=== PATIENT | male | born 1995 | race Caucasian/White ===

== ENCOUNTER 2017-11-05 02:30 | Emergency (ER) | payer OTHER ==
[~2017-11-05] VITALS: Ht 165.1 cm; Wt 68.0 kg
[~2017-11-05 02:30] MED LIST: AMOX875 PO; HYDR1TAB94 PO
[2017-11-05] MEDS ORDERED: Augmentin 875-1 EACH PO (02:38)
== END 2017-11-05 02:50 ==
LOC: ER 02:30
DX: S51.852A Open bite of left forearm, initial encounter (principal); S00.81XA Abrasion of other part of head, initial encounter; Z90.49 Acquired absence of other specified parts of digestive tract; F17.210 Nicotine dependence, cigarettes, uncomplicated; W54.0XXA Bitten by dog, initial encounter
CPT/HCPCS: 90471; 90714; 99283

== ENCOUNTER 2020-06-11 00:50 | Inpatient (IN) | payer SELFPAY ==
[~2020-06-11] VITALS: Ht 165.1 cm; Wt 64.3 kg
[~2020-06-11 00:50] MED LIST changes: +Augmentin 875-1 EACH PO
[2020-06-11 01:24] LABS: Source, Urine Catheter
[2020-06-11 01:28] LABS: BASOPHILS ABSOLUTE AUTO 0.09 K/mm3 (0.00-0.23); BASOPHILS PERCENT AUTO 1 % (0-2); EOSINOPHILS ABSOLUTE AUTO 0.19 K/mm3 (0.00-0.68); EOSINOPHILS PERCENT AUTO 1 % (0-6); Hematocrit 38.7 % (37.0-53.0); Hemoglobin 12.9 g/dL (13.5-17.5); IMMATURE GRAN ABSOLUTE AUTO 0.04 K/mm3 (0.00-0.10); IMMATURE GRAN PERCENT AUTO 0 % (0-1); LYMPHOCYTES ABSOLUTE AUTO 5.71 K/mm3 (0.84-5.20); LYMPHOCYTES PERCENT AUTO 37 % (21-46); MONOCYTES ABSOLUTE AUTO 1.53 K/mm3 (0.16-1.47); MONOCYTES PERCENT AUTO 10 % (4-13); Mean Corpuscular HGB 32.3 pg (26.0-34.0); Mean Corpuscular HGB Conc 33.3 g/dL (31.5-36.5); Mean Corpuscular Volume 97 fL (80-100); Mean Platelet Volume 8.9 fL (9.1-12.4); NEUTROPHILS ABSOLUTE AUTO 8.05 K/mm3 (1.96-9.15); NEUTROPHILS PERCENT AUTO 52 % (41-73); Platelet Count 368 K/mm3 (150-400); RDW Coefficient Variation 12.3 % (11.7-14.2); RDW Standard Deviation 44.1 fL (35.1-46.3); Red Blood Cell Count 3.99 M/mm3 (4.30-5.90); White Blood Cell Count 15.61 K/mm3 (4.00-11.30)
[2020-06-11 01:49] LABS: U Amphetamine Screen DETECTED; U Barbituate Screen Not Detected; U Benzodiazapine Screen Not Detected; U Buprenorphine Screen Not Detected; U Cannabinoids Screen Not Detected; U Cocaine Screen Not Detected; U Methadone Screen Not Detected; U Methamphetamine Screen DETECTED; U Opiates Screen Not Detected; U Oxycodone Screen Not Detected; U Phencyclidine Screen Not Detected; U Propoxyphene Screen Not Detected
[2020-06-11 01:50] LABS: Acetaminophen, Random <2.0 ug/mL (10.0-30.0); Alanine Aminotransfer (ALT/SGP 79 U/L (12-78); Albumin, Blood 4.5 g/dL (3.4-5.0); Albumin/Globulin Ratio 1.2 (0.8-1.8); Alk Phos 102 U/L (50-136); Anion Gap 19 mmol/L (6-16); Aspartate Aminotrans (AST/SGOT 42 U/L (12-37); Bilirubin, Total 0.4 mg/dL (0.1-1.0); Blood Urea Nitrogen 26 mg/dL (8-24); CO2, Blood 17 mmol/L (21-32); Calcium, Blood 9.1 mg/dL (8.5-10.1); Chloride, Blood 107 mmol/L (98-108); Creatinine, Blood 1.24 mg/dL (0.60-1.20); Ethanol (Alcohol), Blood, Med <3 mg/dL; Globulin, Blood 3.8 g/dL (2.2-4.0); Glomerular Filtration Rate >60 (60-); Glucose, Blood 160 mg/dL (70-99); Potassium, Blood 3.9 mmol/L (3.5-5.5); Salicylate <1.7 mg/dL (2.8-20.0); Sodium, Blood 143 mmol/L (136-145); Total Protein, Blood 8.3 g/dL (6.4-8.2)
[2020-06-11 01:54] LABS: Appearance, Urine Clear (Clear); Bilirubin, Urine Neg (Neg); Blood, Urine 1+ (Neg); Color, Urine Yellow (P-Yellow); Glucose Qualitative, Urine Neg (Neg); Ketones, Urine Neg (Neg); Leukocyte Esterase, Urine Neg (Neg); Nitrite, Urine Neg (Neg); Protein, Urine 2+ (Neg); Urobilinogen, Urine NORM (Normal)
[2020-06-11 01:56] LABS: Amorphous Mod (0-Heavy); Bacteria Rare /hpf; Red Blood Cells, Urine Rare /hpf (0-2); Squamous Epithelial Cells Not Seen /hpf (Few); White Blood Cells, Urine Rare /hpf (0-5)
[2020-06-11 04:17] LABS: Hematocrit 36.8 % (37.0-53.0); Hemoglobin 12.9 g/dL (13.5-17.5); Mean Corpuscular HGB 31.9 pg (26.0-34.0); Mean Corpuscular HGB Conc 35.1 g/dL (31.5-36.5); Mean Platelet Volume 8.9 fL (9.1-12.4); Platelet Count 306 K/mm3 (150-400); RDW Coefficient Variation 12.2 % (11.7-14.2); RDW Standard Deviation 40.9 fL (35.1-46.3); Red Blood Cell Count 4.04 M/mm3 (4.30-5.90)
[2020-06-11 04:20] LABS: Mean Corpuscular Volume 91 fL (80-100)
[2020-06-11 04:31] LABS: Anion Gap 8 mmol/L (6-16); Blood Urea Nitrogen 26 mg/dL (8-24); Bun/Creatinine Ratio 22.4 (12.0-20.0); CO2, Blood 25 mmol/L (21-32); Calcium, Blood 9.4 mg/dL (8.5-10.1); Chloride, Blood 108 mmol/L (98-108); Creatinine, Blood 1.16 mg/dL (0.60-1.20); Glomerular Filtration Rate >60 (60-); Glucose, Blood 106 mg/dL (70-99); Potassium, Blood 3.4 mmol/L (3.5-5.5); Sodium, Blood 141 mmol/L (136-145)
--- NOTE | 2020-06-11 07:27 | NUR ---
SHIFT SUMMARY PATIENT ARRIVED TO ICU RM. 5 FROM ED. PT. WAS VERY AGITATED, INCREASED PROPOFOL DRIP TO EVENTUALY 80 MCG/KG/MIN, RECEIVED ORDER FROM DR. SINGH FOR PRECEDEX DRIP, NOW ABLE TO PERFORM MOST ROUTINE CARE WITHOUT STARTING TO THRASH HEAD OR PULL AT ETT. NO COOPERATIVE/PUROSEFUL MOVEMENT NOTED, PT. WOULD JUST THRASH ABOUT AND TRY TO REACH AND PULL AT ETT. DID NOT RECEIVE WORD OR ATTEMPT TO CONTACT FAMILY. TOOK PICTURES OF WOUNDS TO LEFT LEG; THERE IS ONE LARGE LACERATION IN THE INNER LEFT THIGH THAT IS SUTURED, ONE SMALLER PUNCTURE-WOUND, A SMALLER LACERATION THAT IS STARTING TO SCAB OVER, AND THREE MODERATE SIZE PUNCTURE-WOUNDS ON THE POSTERIOR LEFT CALF. ASSESSMENT IS CHARTED. VSS. IT HAS BEEN A PLEASURE TAKING CARE OF THE PATIENT.
--- NOTE | 2020-06-11 07:29 | NUR ---
ASSUMED CARE RECIEVED REPORT FROM RASHAD GA. PT INTUBATED WITH 8.0 ETT, 26 AT THE TIP OF THE LIP. VENT SETTINGS ARE AC 14/430/5/21%; PT CURRENTLY BREATHING AT A RATE OF 20. CURRENT GTTPs ARE PROPOFOL AT 80 MCG/KG/MIN, PRECEDEX AT 0.2 MCG/KG/HR, AND LR AT 125 ML/HR. PT IS IN SINUS RHYTHM TO SINUS TACH, 98-105; BP IS ADEQUATE. PT HAS PATENT BOWSER, DRAINING CLEAR, YELLOW URINE. PT HAS SOFT RESTRAINTS X 4 EXTREMETIES. BED LOW AND LOCKED.
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
--- NOTE | 2020-06-11 18:45 | NUR ---
UPDATE PT WOKE UP WITH VERBAL STIMULATION AND WAS ABLE TO SQUEEZE MY FINGERS AND THEN LET GO. HE BARLEY WIGGLED HIS TOES (BUT MOVEMENT DETECTED). AND HE APPEARED TO NOD TO ME WHEN I ASKED IF HE COULD UNDERSTAND ME. HIS EYES REMAINED CLOSED. AFTER A MOMENT OF NO STIMULATION PT IS NOW BACK TO RESTING/CALM/CPOT OF 0. PT DENIED PAIN.
--- NOTE | 2020-06-11 19:00 | NUR ---
ASSUMED CARE ASSUMED CARE OF PATIENT. REMAINS INTUBATED- AC 14, TV 430, PEEP 5, FIO2 21%. RR 20s. SEDATED WITH PROPOFOL AT 45MCG/KG/MIN AND PRECEDEX AT 0.7MCG/KG/HR. PT IS ATTEMPTING TO SIT UP IN BED AND IS THRASHING- PROPOFOL INCREASED TO 55MCG/KG/MIN BY DAY SHIFT RN. MONITOR SHOWS NSR, RATE 80s. BP STABLE. TEMP 99.3F VIA BOWSER TEMP PROBE. OG TO LIS WITH SCANT DRAINAGE. BOWSER PATENT AND DRAINING TO GRAVITY. LR INFUSING @ 125CC/HR PER ORDER. BILATERAL UPPER AND LOWER EXTREMITY RESTRAINTS IN PLACE. BANDAGES NOTED TO RIGHT UPPER THIGH AND RIGHT CALF- D/D/I. SEE PICTURES IN CHART. SEE SHIFT ASSESSMENT FOR FULL ASSESSMENT.
[2020-06-12 03:37] LABS: BASOPHILS ABSOLUTE AUTO 0.04 K/mm3 (0.00-0.23); BASOPHILS PERCENT AUTO 0 % (0-2); EOSINOPHILS ABSOLUTE AUTO 0.13 K/mm3 (0.00-0.68); EOSINOPHILS PERCENT AUTO 1 % (0-6); Hematocrit 32.5 % (37.0-53.0); IMMATURE GRAN ABSOLUTE AUTO 0.04 K/mm3 (0.00-0.10); IMMATURE GRAN PERCENT AUTO 0 % (0-1); LYMPHOCYTES ABSOLUTE AUTO 1.64 K/mm3 (0.84-5.20); LYMPHOCYTES PERCENT AUTO 16 % (21-46); MONOCYTES ABSOLUTE AUTO 0.98 K/mm3 (0.16-1.47); MONOCYTES PERCENT AUTO 10 % (4-13); Mean Corpuscular HGB 31.8 pg (26.0-34.0); Mean Corpuscular HGB Conc 33.8 g/dL (31.5-36.5); Mean Corpuscular Volume 94 fL (80-100); Mean Platelet Volume 8.5 fL (9.1-12.4); NEUTROPHILS ABSOLUTE AUTO 7.35 K/mm3 (1.96-9.15); NEUTROPHILS PERCENT AUTO 72 % (41-73); Platelet Count 232 K/mm3 (150-400); RDW Coefficient Variation 12.7 % (11.7-14.2); Red Blood Cell Count 3.46 M/mm3 (4.30-5.90); White Blood Cell Count 10.18 K/mm3 (4.00-11.30)
[2020-06-12 04:01] LABS: Alanine Aminotransfer (ALT/SGP 47 U/L (12-78); Albumin, Blood 3.2 g/dL (3.4-5.0); Alk Phos 81 U/L (50-136); Anion Gap 7 mmol/L (6-16); Aspartate Aminotrans (AST/SGOT 34 U/L (12-37); Bilirubin, Total 1.1 mg/dL (0.1-1.0); Blood Urea Nitrogen 17 mg/dL (8-24); Bun/Creatinine Ratio 15.5 (12.0-20.0); CO2, Blood 25 mmol/L (21-32); Calcium, Blood 8.6 mg/dL (8.5-10.1); Chloride, Blood 114 mmol/L (98-108); Glomerular Filtration Rate >60 (60-); Glucose, Blood 101 mg/dL (70-99); Magnesium, Blood 2.5 mg/dL (1.6-2.4); Phosphorus, Blood 4.3 mg/dL (2.5-4.9); Potassium, Blood 3.2 mmol/L (3.5-5.5); Sodium, Blood 146 mmol/L (136-145)
[2020-06-12 04:19] LABS: Albumin/Globulin Ratio 1.1 (0.8-1.8); Total Protein, Blood 6.2 g/dL (6.4-8.2)
[2020-06-12 05:46] LABS: PCO2 Arterial 36.9 mmHg (35-45); PO2 Arterial 91.6 mmHg (80-100); pH Blood Arterial 7.42 (7.35-7.45)
--- NOTE | 2020-06-12 06:04 | NUR ---
SHIFT SUMMARY NO ACUTE CHANGES. REMAINS INTUBATED- AC 14, TV 430, PPEP 5, FIO2 21%. RR 14-20s. SEDATED WITH PROPOFOL BETWEEN 5-55MCG/KG/MIN AND PRECEDEX BETWEEN 0.3-0.7MCG/KG/HR DURING NOC. PROPOFOL NOW AT 25MCG/KG/MIN AND PRECEDEX AT 0.7MCG/KG/HR. SBT DONE THIS AM WITH PROPOFOL OFF AND PRECEDEX AT 0.3MCG/KG/HR. PT COOPERATIVE IN THE BEGINNING OF WEANING TRIAL, BUT BECAME AGITATED AND RESTLESS AT THE END. PROPOFOL AND PRECEDEX RESTARTED AND PT MEDICATED WITH ATIVAN 2MG IV FOLLOWED BY FENTANYL 50MCG IV AN ADJUNCT TO SEDATION. MOVES ALL EXTREMITIES, BUT DOES NOT FOLLOW COMMANDS. ATTEMPTS TO REACH FOR ETT WHEN RESTRAINTS LOOSENED. VSS T/O NOC. OG TO LIS WITH 250CC GREENISH DRAINAGE. BOWSER PATENT AND DRAINING TO GRAVITY. RIGHT THIGH AND CALF DRSGS ARE C/D/I. KCL IV REPLACEMENT STARTED PER ELECTROLYTE PROTOCOL. WILL REPORT TO DAY SHIFT RN WHEN AVAILABLE.
--- NOTE | 2020-06-12 06:10 | NUR ---
SHIFT SUMMARY NO ACUTE CHANGES DURING NOC. PT WAS CALM AND COOPERATIVE. MEDICATED WITH TYLENOL 650MG PO X 2 DOSES AND FENTANYL 25MCG IV X 2 DOSES FOR C/O LEFT ARM PAIN. LEFT ARM IS SWOLLEN AND RED. TMAX 99.7F. VSS. RESPIRATIONS EVEN AND UNLABORED. VOIDING WITHOUT DIFFICULTY. INCONTINENT OF LOOSE BROWN STOOL WHILE IN SHOWER. REMAINS ON A 2MD HOLD. DENIED SUICIDAL/HOMICIDAL IDEATION. WILL REPORT TO ONCOMING RN WHEN AVAILABLE.
--- NOTE | 2020-06-12 08:26 | NUR ---
PT INTUBATED AND SEDATED WITH PROPOFOL AND PRECEDEX (SEE FLOWSHEET). DR. DE LA ROSA IN TO SEE PT AND WANTS HIM WEANED DOWN ON SEDATION TO SEE IF HE FOLLOWS COMMANDS. NO SIGN OF DISTRESS AT THE MOMENT.
--- NOTE | 2020-06-12 09:35 | NUR ---
PT EXTUBATED AT [address] DE LA ROSA. PRECEDEX PUT ON STANDBY. PT ON 4L NC. WAKING UP BUT IS DIFFICULT TO UNDERSTAND. FOLLOWING SIMPLE COMMANDS.
--- NOTE | 2020-06-12 11:53 | NUR ---
AFTER EXTUBATION PT WAS ABLE TO FOLLOW SIMPLE COMMANDS BUT BECOMES AGITATED. WAS NOT ABLE TO REDIRECT. PT'S CONVERSATION WAS NOT MAKING SENSE AND STARTED PULLING IV'S OUT AND LINES OFF. PT PULLED IV OUT AND WOULD NOT ALLOW RN TO COVER. PT STATES "NO JUST LET IT BLEED", BLOOD IS RUNNING DOWN HIS ARM. WOULD NOT KEEP O2 SAT PROBE ON. PT ASKED "WHAT DID THEY DO WITH MY CRYSTALS". WHEN BOWSER WAS REMOVED PT WANTED TO INSPECT URINE FOR "SHADOWS". NOW HAS O2 OFF AND IS 97% ON RA. PUT PT BACK ON PRECEDEX AND GAVE ATIVAN.
--- NOTE | 2020-06-12 17:45 | NUR ---
SUMMARY PT WAS EXTUBATED THIS AM. HAS BEEN ON RA MOST OF THE DAY. PT WAS INITIALLY PULLING LINES AND TUBES AND WAS NOT REDIRECTABLE. HE WOULD HAVE BIZAAR CONVERSATION THAT DID NOT CORRELATE. WAS ON PRECEDEX UNTIL THIS EVENING. PT WOKE THIS EVENING COOPERATIVE AND ABLE TO ANSWER QUESTIONS. PRECEDEX WAS TURNED OFF. PT IS NOW WANTING TO GO HOME. EDUCATED ABOUT NEED FOR ABX AND HE IS STILL UNSTEADY ON FEET. GOT PT TO RECLINER CHAIR AND IS NOW RESTING THERE. ATE 2 JELLO WITHOUT DIFFICULTY AND TOLERATING WATER. DINNER TRAY ON IT'S WAY. WILL CONTINUE TO TRY TO GET PT TO STAY IN THE HOSPITAL. DR. TIRADO CAME IN AND LOOKED AT SUTURES TO R THIGH. NO NEW ORDERS. NO SIGN OF DISTRESS.
--- NOTE | 2020-06-12 18:14 | NUR ---
PT WANTS TO LEAVE AMA. EDUCATED ABOUT RISKS OF LEAVING AND BENEFITS OF STAYING. PT SPOKE WITH FRIEND ON THE PHONE WHO IS HERE TO GET HIM. PT ABLE TO STATE NAME, MONTH, YEAR, PRESIDENT, AND WHY HE WAS BROUGHT IN TO THE HOSPITAL. PT IS STILL UNSTEADY ON FEET. FRIEND SAYS SHE WILL HELP HIM TO THE CAR AND TAKE CARE OF HIM AT HOME. PT IS ADAMANT. IV'S REMOVED, AMA PAPERWORK SIGNED, AND DR. MADDOX NOTIFIED. PT IS BEING WHEELED OUT OF UNIT BY FRIEND WITH ER WHEEL CHAIR.
== END 2020-06-12 18:15 | disposition left against medical advice (07) | DRG 604 ==
LOC: ER 00:50 → ICUE 02:17 → ICUW 02:17 → ICUE 03:30
PROVIDERS: Emergency Medicine; Internal Medicine Critical Care Medicine; ADMIT Internal Medicine
PROC: 0BH17EZ Insertion of Endotracheal Airway into Trachea, Via Natural or Artificial Opening (ICD-10-PCS; principal; 2020-06-11)
PROC: 5A1935Z Respiratory Ventilation, Less than 24 Consecutive Hours (ICD-10-PCS; 2020-06-11)
PROC: 0HQKXZZ Repair Right Lower Leg Skin, External Approach (ICD-10-PCS; 2020-06-11)
DX: S71.151A Open bite, right thigh, initial encounter (principal); G92 Toxic encephalopathy; R65.10 Systemic inflammatory response syndrome (SIRS) of non-infectious origin without acute organ dysfunction; W54.0XXA Bitten by dog, initial encounter; Y92.89 Other specified places as the place of occurrence of the external cause; Y99.9 Unspecified external cause status; F15.10 Other stimulant abuse, uncomplicated; F17.210 Nicotine dependence, cigarettes, uncomplicated; E87.6 Hypokalemia
CPT/HCPCS: 12002; 31500; 31720; 36415; 36600; 36680; 51702; 71045; 80048; 80053; 81001; 82330; 82803; 83605; 83735; 84100; 85025; 85027; 87040; 87070; 87205; 90471; 90714; 94002; 94003; 96365-59; 96366-59; 99291-25; 99292; C1751; C9113; G0480; J0330; J0690; J1650; J2060; J2543; J2704; J3010; J3480; J7120

== ENCOUNTER 2020-12-04 21:49 | Emergency (ER) | payer OTHER ==
[~2020-12-04] VITALS: Ht 172.7 cm; Wt 68.0 kg
[2020-12-04 22:17] LABS: BASOPHILS ABSOLUTE AUTO 0.04 K/mm3 (0.00-0.23); BASOPHILS PERCENT AUTO 0 % (0-2); EOSINOPHILS ABSOLUTE AUTO 0.18 K/mm3 (0.00-0.68); EOSINOPHILS PERCENT AUTO 1 % (0-6); Hematocrit 34.2 % (37.0-53.0); Hemoglobin 11.9 g/dL (13.5-17.5); IMMATURE GRAN ABSOLUTE AUTO 0.15 K/mm3 (0.00-0.10); IMMATURE GRAN PERCENT AUTO 1 % (0-1); LYMPHOCYTES PERCENT AUTO 16 % (21-46); MONOCYTES ABSOLUTE AUTO 0.76 K/mm3 (0.16-1.47); MONOCYTES PERCENT AUTO 6 % (4-13); Mean Corpuscular HGB 31.2 pg (26.0-34.0); Mean Corpuscular HGB Conc 34.8 g/dL (31.5-36.5); Mean Corpuscular Volume 90 fL (80-100); Mean Platelet Volume 9.4 fL (9.1-12.4); NEUTROPHILS ABSOLUTE AUTO 9.32 K/mm3 (1.96-9.15); NEUTROPHILS PERCENT AUTO 75 % (41-73); Platelet Count 353 K/mm3 (150-400); RDW Coefficient Variation 13.2 % (11.7-14.2); RDW Standard Deviation 42.9 fL (35.1-46.3); Red Blood Cell Count 3.82 M/mm3 (4.30-5.90); White Blood Cell Count 12.45 K/mm3 (4.00-11.30)
[2020-12-04 22:30] LABS: International Normalized Ratio 0.98; Prothrombin Time Results 10.5 Sec (9.7-11.5)
[2020-12-04 22:37] LABS: Alanine Aminotransfer (ALT/SGP 49 U/L (12-78); Albumin, Blood 3.9 g/dL (3.4-5.0); Albumin/Globulin Ratio 1.1 (0.8-1.8); Alk Phos 82 U/L (50-136); Anion Gap 9 mmol/L (6-16); Aspartate Aminotrans (AST/SGOT 74 U/L (12-37); Beta HCG, Quantitative, Serum <1 mIU/mL (0-1); Bilirubin, Total 0.4 mg/dL (0.1-1.0); Blood Urea Nitrogen 26 mg/dL (8-24); Bun/Creatinine Ratio 20.8 (12.0-20.0); CO2, Blood 25 mmol/L (21-32); Calcium, Blood 8.7 mg/dL (8.5-10.1); Chloride, Blood 107 mmol/L (98-108); Creatinine, Blood 1.25 mg/dL (0.60-1.20); Ethanol (Alcohol), Blood, Med <3 mg/dL; Globulin, Blood 3.5 g/dL (2.2-4.0); Glomerular Filtration Rate 54 (60-); Glucose, Blood 95 mg/dL (70-99); Potassium, Blood 4.5 mmol/L (3.5-5.5); Sodium, Blood 141 mmol/L (136-145); Total Protein, Blood 7.4 g/dL (6.4-8.2)
== END 2020-12-05 00:26 | disposition short-term general hospital (02) ==
LOC: ER 21:49 → EDBD 21:49 → ER 21:49
PROVIDERS: Emergency Medicine
DX: S22.42XA Multiple fractures of ribs, left side, initial encounter for closed fracture (principal); S27.0XXA Traumatic pneumothorax, initial encounter; S27.321A Contusion of lung, unilateral, initial encounter; S36.039A Unspecified laceration of spleen, initial encounter; W13.2XXA Fall from, out of or through roof, initial encounter
CPT/HCPCS: 70450; 71260; 72125; 74177; 80053; 83690; 84702; 85025; 85610; 96374-59; 99285-25; G0480; J3010; L0160; Q9967

== ENCOUNTER 2020-12-22 16:13 | Emergency (ER) | payer OTHER ==
[~2020-12-22] VITALS: Ht 162.6 cm; Wt 68.0 kg
== END 2020-12-22 16:42 | disposition left against medical advice (07) ==
LOC: ER 16:13
DX: R07.81 Pleurodynia (principal); Z53.21 Procedure and treatment not carried out due to patient leaving prior to being seen by health care provider
CPT/HCPCS: 99283

== ENCOUNTER 2021-04-29 12:00 | Emergency (ER) | payer OTHER ==
[~2021-04-29] VITALS: Ht 162.6 cm; Wt 72.6 kg
== END 2021-04-29 12:15 | disposition left against medical advice (07) ==
LOC: ER 12:00
DX: Z53.21 Procedure and treatment not carried out due to patient leaving prior to being seen by health care provider (principal)

== ENCOUNTER 2021-09-12 06:41 | Emergency (ER) | payer OTHER ==
[~2021-09-12] VITALS: Ht 162.6 cm; Wt 65.8 kg
[2021-09-12] MEDS ORDERED: Bactrim Ds Tab1 EACH PO (09:04)
[2021-09-12] MEDS ORDERED: CEPH500 PO (09:04)
== END 2021-09-12 09:43 | disposition home or self-care (01) ==
LOC: ER 06:41
DX: L02.511 Cutaneous abscess of right hand (principal); L03.113 Cellulitis of right upper limb; F17.210 Nicotine dependence, cigarettes, uncomplicated
CPT/HCPCS: 10060; 36415; 73120; 90471; 90714; 96365; 96375; 99283-25; A9270; J0690; J1885

== ENCOUNTER 2022-01-29 18:41 | Emergency (ER) | payer OTHER ==
[~2022-01-29] VITALS: Ht 157.5 cm; Wt 45.4 kg
[~2022-01-29 18:41] MED LIST changes: +Bactrim Ds Tab1 EACH PO; +CEPH500 PO
== END 2022-01-29 19:30 ==
LOC: ER 18:41
DX: F29 Unspecified psychosis not due to a substance or known physiological condition (principal); F17.210 Nicotine dependence, cigarettes, uncomplicated
CPT/HCPCS: 96372; 99282-25; J2060

== ENCOUNTER 2022-02-27 20:33 | Emergency (ER) | payer OTHER ==
[~2022-02-27] VITALS: Ht 162.6 cm; Wt 63.5 kg
[2022-02-27 21:32] LABS: BASOPHILS ABSOLUTE AUTO 0.05 K/mm3 (0.00-0.23); BASOPHILS PERCENT AUTO 1 % (0-2); EOSINOPHILS ABSOLUTE AUTO 0.15 K/mm3 (0.00-0.68); EOSINOPHILS PERCENT AUTO 2 % (0-6); Hematocrit 32.3 % (37.0-53.0); Hemoglobin 10.9 g/dL (13.5-17.5); Mean Corpuscular HGB 29.6 pg (26.0-34.0); Mean Corpuscular HGB Conc 33.7 g/dL (31.5-36.5); Mean Corpuscular Volume 88 fL (80-100); Mean Platelet Volume 10.1 fL (9.1-12.4); Platelet Count 234 K/mm3 (150-400); RDW Coefficient Variation 17.3 % (11.7-14.2); RDW Standard Deviation 54.8 fL (35.1-46.3); Red Blood Cell Count 3.68 M/mm3 (4.30-5.90); White Blood Cell Count 7.81 K/mm3 (4.00-11.30)
[2022-02-27 21:33] LABS: IMMATURE GRAN ABSOLUTE AUTO 0.02 K/mm3 (0.00-0.10); IMMATURE GRAN PERCENT AUTO 0 % (0-1); LYMPHOCYTES ABSOLUTE AUTO 3.27 K/mm3 (0.84-5.20); LYMPHOCYTES PERCENT AUTO 42 % (21-46); MONOCYTES ABSOLUTE AUTO 0.85 K/mm3 (0.16-1.47); MONOCYTES PERCENT AUTO 11 % (4-13); NEUTROPHILS ABSOLUTE AUTO 3.47 K/mm3 (1.96-9.15); NEUTROPHILS PERCENT AUTO 44 % (41-73)
[2022-02-27 22:12] LABS: Albumin/Globulin Ratio 0.9 (0.8-1.8); Bilirubin, Direct 6.8 mg/dL (0.0-0.3); Bilirubin, Total 9.1 mg/dL (0.1-1.0); Bun/Creatinine Ratio 13.4 (12.0-20.0); Calcium, Blood 8.4 mg/dL (8.5-10.1); Creatinine, Blood 0.74 mg/dL (0.60-1.20); Globulin, Blood 3.5 g/dL (2.2-4.0); Potassium, Blood 3.9 mmol/L (3.5-5.5); Total Protein, Blood 6.5 g/dL (6.4-8.2)
[2022-02-27 22:40] LABS: Source, Urine Clean Catch
[2022-02-27 22:44] LABS: Blood, Urine Neg (Neg); Glucose Qualitative, Urine Neg (Neg); Ketones, Urine Neg (Neg); Leukocyte Esterase, Urine Neg (Neg); Nitrite, Urine Neg (Neg); Protein, Urine Neg (Neg); Specific Gravity, Urine 1.015 (1.003-1.022); Urobilinogen, Urine 1+ (Normal)
[2022-02-27 22:48] LABS: Appearance, Urine Clear (Clear); Bilirubin, Urine 2+ (Neg); Color, Urine Yellow (P-Yellow)
== END 2022-02-27 23:50 | disposition left against medical advice (07) ==
LOC: ER 20:33
PROVIDERS: Emergency Medicine; Physician Assistant
DX: L98.9 Disorder of the skin and subcutaneous tissue, unspecified (principal); Z53.21 Procedure and treatment not carried out due to patient leaving prior to being seen by health care provider
CPT/HCPCS: 36415; 80053; 81003; 82248; 83690; 85025

== ENCOUNTER 2022-03-06 18:11 | Inpatient (IN) | payer OTHER ==
[~2022-03-06] VITALS: Ht 162.6 cm; Wt 61.4 kg
[2022-03-06 19:27] LABS: BASOPHILS ABSOLUTE AUTO 0.07 K/mm3 (0.00-0.23); BASOPHILS PERCENT AUTO 0 % (0-2); EOSINOPHILS ABSOLUTE AUTO 0.17 K/mm3 (0.00-0.68); EOSINOPHILS PERCENT AUTO 1 % (0-6); Hematocrit 29.6 % (37.0-53.0); Hemoglobin 9.9 g/dL (13.5-17.5); IMMATURE GRAN ABSOLUTE AUTO 0.09 K/mm3 (0.00-0.10); IMMATURE GRAN PERCENT AUTO 1 % (0-1); LYMPHOCYTES ABSOLUTE AUTO 3.66 K/mm3 (0.84-5.20); LYMPHOCYTES PERCENT AUTO 20 % (21-46); MONOCYTES ABSOLUTE AUTO 1.94 K/mm3 (0.16-1.47); MONOCYTES PERCENT AUTO 10 % (4-13); Mean Corpuscular HGB 30.8 pg (26.0-34.0); Mean Corpuscular HGB Conc 33.4 g/dL (31.5-36.5); Mean Corpuscular Volume 92 fL (80-100); Mean Platelet Volume 8.7 fL (9.1-12.4); NEUTROPHILS ABSOLUTE AUTO 12.67 K/mm3 (1.96-9.15); NEUTROPHILS PERCENT AUTO 68 % (41-73); Platelet Count 486 K/mm3 (150-400); RDW Coefficient Variation 17.2 % (11.7-14.2); RDW Standard Deviation 57.7 fL (35.1-46.3); Red Blood Cell Count 3.21 M/mm3 (4.30-5.90)
[2022-03-06 19:45] LABS: Albumin/Globulin Ratio 0.7 (0.8-1.8); Bilirubin, Total 2.1 mg/dL (0.1-1.0); Bun/Creatinine Ratio 22.5 (12.0-20.0); Calcium, Blood 8.4 mg/dL (8.5-10.1); Creatinine, Blood 0.71 mg/dL (0.60-1.20); Globulin, Blood 4.3 g/dL (2.2-4.0); Potassium, Blood 3.4 mmol/L (3.5-5.5); Total Protein, Blood 7.3 g/dL (6.4-8.2)
[2022-03-06 23:32] LABS: C-REACTIVE PROTEIN, EXT RANGE 7.37 mg/dL (0.000-0.300)
[2022-03-07 07:25] LABS: BASOPHILS ABSOLUTE AUTO 0.06 K/mm3 (0.00-0.23); BASOPHILS PERCENT AUTO 0 % (0-2); EOSINOPHILS ABSOLUTE AUTO 0.26 K/mm3 (0.00-0.68); EOSINOPHILS PERCENT AUTO 2 % (0-6); Hematocrit 28.1 % (37.0-53.0); Hemoglobin 9.4 g/dL (13.5-17.5); IMMATURE GRAN ABSOLUTE AUTO 0.09 K/mm3 (0.00-0.10); IMMATURE GRAN PERCENT AUTO 1 % (0-1); LYMPHOCYTES ABSOLUTE AUTO 2.79 K/mm3 (0.84-5.20); LYMPHOCYTES PERCENT AUTO 17 % (21-46); MONOCYTES ABSOLUTE AUTO 1.95 K/mm3 (0.16-1.47); MONOCYTES PERCENT AUTO 12 % (4-13); Mean Corpuscular HGB 31.1 pg (26.0-34.0); Mean Corpuscular HGB Conc 33.5 g/dL (31.5-36.5); Mean Corpuscular Volume 93 fL (80-100); Mean Platelet Volume 8.9 fL (9.1-12.4); NEUTROPHILS ABSOLUTE AUTO 11.24 K/mm3 (1.96-9.15); NEUTROPHILS PERCENT AUTO 69 % (41-73); Platelet Count 511 K/mm3 (150-400); RDW Coefficient Variation 17.1 % (11.7-14.2); RDW Standard Deviation 57.7 fL (35.1-46.3); Red Blood Cell Count 3.02 M/mm3 (4.30-5.90); White Blood Cell Count 16.39 K/mm3 (4.00-11.30)
[2022-03-07 07:38] LABS: Albumin, Blood 2.6 g/dL (3.4-5.0); Albumin/Globulin Ratio 0.6 (0.8-1.8); Bilirubin, Total 2.4 mg/dL (0.1-1.0); Bun/Creatinine Ratio 17.3 (12.0-20.0); Calcium, Blood 8.4 mg/dL (8.5-10.1); Creatinine, Blood 0.64 mg/dL (0.60-1.20); Globulin, Blood 4.1 g/dL (2.2-4.0); Potassium, Blood 4.1 mmol/L (3.5-5.5); Total Protein, Blood 6.7 g/dL (6.4-8.2)
--- NOTE | 2022-03-07 15:08 | NUR ---
pt arrived to 355 via gurney from ED. report from Jolie, pt able to transfer himself to bed indep. a/ox3, but laughs at everything inapropriately. denies pain, states he feels good, lungs are clear, r/a, resp even and unlabored, no cough noted, hrr, no edema noted, piv to r and l ac's, btx4, abd flat soft nontender, voids without diff, skin has a half dollar size wound to left knee, slightly pink, somewhat swollen and small amount of drainage, he [place], [place], nalini, call light in reach.
--- NOTE | 2022-03-07 18:30 | NUR ---
Pt is eating dinner and watching a movie, he is still in good spirits, offered him a shower, he is wanting to do that after his movie. no further needs or changes this shift. call light in reach.
[2022-03-08 04:34] LABS: BASOPHILS ABSOLUTE AUTO 0.07 K/mm3 (0.00-0.23); BASOPHILS PERCENT AUTO 1 % (0-2); EOSINOPHILS ABSOLUTE AUTO 0.38 K/mm3 (0.00-0.68); EOSINOPHILS PERCENT AUTO 3 % (0-6); Hematocrit 28.6 % (37.0-53.0); Hemoglobin 9.3 g/dL (13.5-17.5); IMMATURE GRAN ABSOLUTE AUTO 0.08 K/mm3 (0.00-0.10); IMMATURE GRAN PERCENT AUTO 1 % (0-1); LYMPHOCYTES ABSOLUTE AUTO 2.87 K/mm3 (0.84-5.20); LYMPHOCYTES PERCENT AUTO 23 % (21-46); MONOCYTES ABSOLUTE AUTO 1.71 K/mm3 (0.16-1.47); MONOCYTES PERCENT AUTO 13 % (4-13); Mean Corpuscular HGB 30.5 pg (26.0-34.0); Mean Corpuscular HGB Conc 32.5 g/dL (31.5-36.5); Mean Corpuscular Volume 94 fL (80-100); Mean Platelet Volume 8.6 fL (9.1-12.4); NEUTROPHILS ABSOLUTE AUTO 7.66 K/mm3 (1.96-9.15); NEUTROPHILS PERCENT AUTO 60 % (41-73); Platelet Count 535 K/mm3 (150-400); RDW Coefficient Variation 16.8 % (11.7-14.2); RDW Standard Deviation 57.2 fL (35.1-46.3); Red Blood Cell Count 3.05 M/mm3 (4.30-5.90); White Blood Cell Count 12.77 K/mm3 (4.00-11.30)
--- NOTE | 2022-03-08 04:40 | NUR ---
SHIFT SUMMARY A/OX4, IND IN ROOM. DENIES PAIN OR SOB. IV VANCO AND UNASYN GIVEN. L. KNEE ABCESS MAXIMINO WITH MINIMAL SS DRAINAGE. LOW GRADE FEVER NOTED, TYLENOL GIVEN. VSS, NO ACUTE CHANGES AT THIS TIME. BED IN LOWEST POSITION WITH CALL LIGHT IN REACH. WILL CONTINUE TO MONITOR AND REPORT TO ONCOMING RN.
[2022-03-08 04:59] LABS: Bun/Creatinine Ratio 14.9 (12.0-20.0); Calcium, Blood 8.6 mg/dL (8.5-10.1); Creatinine, Blood 0.67 mg/dL (0.60-1.20); Potassium, Blood 3.8 mmol/L (3.5-5.5)
--- NOTE | 2022-03-08 08:00 | NUR ---
pt laying in bed eating breakfast, a/ox3, pleasant and cooperative with care, follows commands well, denies pain, states he feels good, will take a shower after breakfast, lungs are clear in upper stauffer dim in bases, resp even and unlabored, no cough noted, on r/a, hrr, bounding, no edema noted, ppp+2, cap refill <3sec, vs stable afebrile, iv site to rac site is clear and patent, btx4, abd flat soft nontender, voids without diff, skin has a wound to left knee, is swollen, some drainage, red ring around it, nalini alanis, call light in reach.
--- NOTE | 2022-03-08 18:00 | NUR ---
pt has had an uneventful day, he showered this am, leg looks a bit better than when he came in, he squeezed some white material out, Dr. Rao in to see him, he will watch it for now, asked to place dressing just to absorb, this was done, no further changes this shift. call light in reach.
[2022-03-09 04:29] LABS: Hematocrit 29.6 % (37.0-53.0); Hemoglobin 9.3 g/dL (13.5-17.5); Mean Corpuscular HGB 29.7 pg (26.0-34.0); Mean Corpuscular HGB Conc 31.4 g/dL (31.5-36.5); Mean Corpuscular Volume 95 fL (80-100); Mean Platelet Volume 8.5 fL (9.1-12.4); Platelet Count 578 K/mm3 (150-400); RDW Coefficient Variation 16.9 % (11.7-14.2); RDW Standard Deviation 57.9 fL (35.1-46.3); Red Blood Cell Count 3.13 M/mm3 (4.30-5.90); White Blood Cell Count 8.25 K/mm3 (4.00-11.30)
[2022-03-09 04:54] LABS: Bun/Creatinine Ratio 17.9 (12.0-20.0); Calcium, Blood 8.8 mg/dL (8.5-10.1); Creatinine, Blood 0.73 mg/dL (0.60-1.20); Percent Saturation 12.1 % (20.0-50.0); Potassium, Blood 3.8 mmol/L (3.5-5.5)
--- NOTE | 2022-03-09 05:10 | NUR ---
SHIFT SUMMARY 26 YR M ADMITTED FOR CELLULITIS/ABSCESS OF LEFT KNEE. FULL CODE. PT IS A VERY PLEASANT AND COOPERATIVE YOUNG MAN. HE STATES THAT HIS KNEE IS FEELING BETTER AND HE HAS HAD NO C/O PAIN. HIS WOUND DRESSING CAME LOOSE AND WAS CHANGED THIS SHIFT. HE IS STILL RECEIVING ABX AND HE WAS ABLE TO GET SOME SLEEP THIS SHIFT.
[2022-03-09 10:17] LABS: Vancomycin, Trough 17.1 ug/mL (5.0-10.0)
--- NOTE | 2022-03-09 17:58 | NUR ---
END OF SHIFT SUMMARY: PATIENT COMFORTABLE THROUGHOUT SHIFT. LEFT KNEE WOUND HAS SMALL AMOUNT OF PURULENT DRAINAGE. DRESSING CHANGED TWICE TODAY (EXU-DRY AND KERLEX). PATIENT REPORTS IMPROVEMENT IN THE LEFT KNEE. NO OBVIOUS SWELLING OF THE LEFT KNEE. PATIENT IS ABLE TO FULLY BEND AND EXTEND LEFT KNEE. PATIENT DENIES TENDERNESS WITH PALPATION AROUND THE WOUND. PATIENT INDEPENDENT IN THE ROOM. PATIENT AMBULATED IN THE HALLS MULTIPLE TIMES TODAY. DENIES NAUSEA OR DIARRHEA.
--- NOTE | 2022-03-10 04:23 | NUR ---
SHIFT SUMMARY ADMITTED FOR CELLULITIS OF LEFT KNEE. FULL CODE. PLAN IS FOR IV ANTIB RX. DR. PERSAUD IS CONSULT. REGULAR DIET. RA. A&O X4. INDEPENDENT. HX OF METH+. PLEASANT AND COOPERATIVE WITH CARE. WOUND CARE INSTRUCTIONS ARE IN THE CHART.
[2022-03-10 11:14] LABS: Vancomycin, Trough 21.1 ug/mL (5.0-10.0)
--- NOTE | 2022-03-10 19:42 | NUR ---
END OF SHIFT SUMMARY: PATIENT CONTINUED TO REPORT IMPROVEMENT IN LEFT KNEE WOUND. NO CHANGES NOTED BY RN. DRESSING CHANGED - SMALL AMOUNT OF PURULENT DRAINAGE. PATIENT PRESSED ON THE KNEE CAP - NO DRAINAGE EXPRESSED. PATIENT INDEPENDENT IN THE ROOM AND AMBULATES FREQUENTLY. PATIENT EXPRESSES THAT HE WOULD LIKE TO DISCHARGE TO A DRUG REHAB FACILITY. CARE MANAGEMENT REPORTS THIS IS ALREADY BEING WORKED ON.
--- NOTE | 2022-03-11 05:35 | NUR ---
SHIFT SUMMARY ADMITTED FOR CELLULITIS OF LEFT KNEE. FULL CODE. PLAN IS FOR IV ANTIB RX. INPT REHAB WHEN READY FOR DC. RA. A&O X4, INDEPENDENT. REGULAR DIET. HOMELESS. WOUND CARE DRESSING CHANGES PER ORDERS
[2022-03-11] MEDS ORDERED: Acetaminophen325 M1 PO (11:14)
[2022-03-11] MEDS ORDERED: AMOCLA875 PO (11:15)
--- NOTE | 2022-03-11 11:50 | NUR ---
DISCHARGE SUMMARY: PATIENT CONTINUES TO REPORT IMPROVEMENT IN HIS LEFT KNEE WOUND. SMALL AMOUNT OF SEROUS-SANGINOUS/PURULENT DRAINAGE. WOUND APPEARS IMPROVED. DRESSING CHANGE COMPLETED. PATIENT EDUCATION ON DRESSING CHANGES AND SIGNS/SYMPTOMS OF INFECTION. PATIENT IS AGREEABLE TO INPATIENT REHAB. PATIENT DISCHARGED WITH REPRESENTATIVES FROM [facility] FOR INITIAL INTERVIEW. CARE MANAGEMENT ALSO ARRANGED FOR PATIENT TO STAY WITH HIS FATHER UNTIL HE IS ABLE TO BE ADMITTED. PATIENT EDUCATION AND INSTRUCTIONS PROVIDED. ANTIBIOTIC RX FAXED TO [facility] PER PATIENT REQUEST. ALL QUESTIONS AND CONCERNS ADDRESSED. PATIENT STABLE AT TIME OF DISCHARGE.
== END 2022-03-11 12:04 | disposition home or self-care (01) | DRG 872 ==
LOC: ER 18:11 → MEDS 03-07 01:49 → ERHOLD 03-07 01:49 → MEDS 03-07 14:10
PROVIDERS: Internal Medicine; Student in an Organized Health Care Education/Training Program; ADMIT Internal Medicine
DX: A41.9 Sepsis, unspecified organism (principal); L03.116 Cellulitis of left lower limb; M70.42 Prepatellar bursitis, left knee; F15.10 Other stimulant abuse, uncomplicated; D64.9 Anemia, unspecified; E87.6 Hypokalemia; F17.210 Nicotine dependence, cigarettes, uncomplicated; Z90.49 Acquired absence of other specified parts of digestive tract; Z59.00 Homelessness unspecified
CPT/HCPCS: 36415; 73562-LT; 73701; 80048; 80053; 80202; 82728; 83540; 83550; 83605; 85025; 85027; 85651; 86140; 87040; 99284-25; A9270; J0295; J1650; J1885; J2543; J3370; J3480; J7030; J7040; J7060; Q9967

== ENCOUNTER 2022-12-25 01:20 | Emergency (ER) | payer OTHER ==
[~2022-12-25] VITALS: Ht 162.6 cm; Wt 65.8 kg
[~2022-12-25 01:20] MED LIST changes: +AMOCLA875 PO; +Acetaminophen325 M1 PO; +BACTRIM DS TAB1 EAC6 PO; +DOXY100 PO; +IBUP600 PO; +VISBIOME 112.51 EACH PO
[2022-12-25] MEDS ORDERED: CEPH500 PO (01:38)
== END 2022-12-25 01:58 | disposition home or self-care (01) ==
LOC: ER 01:20
DX: T24.212A Burn of second degree of left thigh, initial encounter (principal); T31.0 Burns involving less than 10% of body surface; L03.116 Cellulitis of left lower limb; F17.210 Nicotine dependence, cigarettes, uncomplicated; F19.10 Other psychoactive substance abuse, uncomplicated; X08.8XXA Exposure to other specified smoke, fire and flames, initial encounter
CPT/HCPCS: 99282; A9270